=== PATIENT | female | born 1995 ===

== ENCOUNTER 2018-11-23 06:01 | Inpatient (IN) | payer OTHER ==
[~2018-11-23] VITALS: Ht 160 cm; Wt 93.4 kg
[2018-11-23] MEDS ORDERED: PRENATAL 19 TA1 EACH PO (07:03)
== END 2018-11-25 12:26 | disposition home or self-care (01) | DRG 807 ==
LOC: LDR 06:01 → OB/GYN 16:10
PROVIDERS: ADMIT Obstetrics & Gynecology
PROC: 10E0XZZ Delivery of Products of Conception, External Approach (ICD-10-PCS; principal; 2018-11-23)
PROC: 4A1HXCZ Monitoring of Products of Conception, Cardiac Rate, External Approach (ICD-10-PCS; 2018-11-23)
PROC: 4A033R1 Measurement of Arterial Saturation, Peripheral, Percutaneous Approach (ICD-10-PCS; 2018-11-23)
DX: O80 Encounter for full-term uncomplicated delivery (principal); Z37.0 Single live birth; Z3A.39 39 weeks gestation of pregnancy; Z22.330 Carrier of Group B streptococcus

== ENCOUNTER 2021-07-15 08:03 | Outpatient (CLI) | payer OTHER ==
[~2021-07-15 08:03] MED LIST: PRENATAL 19 TA1 EACH PO
[2021-07-18] MEDS ORDERED: HUMULIN N100 UNIT/2 SUBCUTANEO (15:01)
[2021-07-18] MEDS ORDERED: HUMULIN R100 UNIT/1 SUBCUTANEO (15:02)
[2021-07-18] MEDS ORDERED: INSULIN SYRING1 EA29 SUBCUTANEO (15:03)
[2021-07-18] MEDS ORDERED: ALCOHOL PADS1 EACH TOP (15:04)
== END 2021-07-15 10:20 | disposition home or self-care (01) ==
LOC: PRENATAL 08:03
PROVIDERS: ATTEND Obstetrics & Gynecology Maternal & Fetal Medicine
DX: O35.0XX1 Maternal care for (suspected) central nervous system malformation in fetus, fetus 1 (principal); O35.3XX1 Maternal care for (suspected) damage to fetus from viral disease in mother, fetus 1; O98.512 Other viral diseases complicating pregnancy, second trimester; O24.410 Gestational diabetes mellitus in pregnancy, diet controlled; O99.212 Obesity complicating pregnancy, second trimester; Z36.89 Encounter for other specified antenatal screening; Z3A.24 24 weeks gestation of pregnancy

== ENCOUNTER 2021-08-14 15:09 | Outpatient (CLI) | payer OTHER ==
[~2021-08-14 15:09] MED LIST changes: +ALCOHOL PADS1 EACH TOP; +HUMULIN N100 UNIT/2 SUBCUTANEO; +HUMULIN R100 UNIT/1 SUBCUTANEO; +INSULIN SYRING1 EA29 SUBCUTANEO
== END 2021-08-14 15:59 | disposition home or self-care (01) ==
LOC: PRENATAL 15:09
PROVIDERS: ATTEND Obstetrics & Gynecology Maternal & Fetal Medicine
DX: O26.843 Uterine size-date discrepancy, third trimester (principal); O99.213 Obesity complicating pregnancy, third trimester; O24.410 Gestational diabetes mellitus in pregnancy, diet controlled; Z36.89 Encounter for other specified antenatal screening; Z3A.29 29 weeks gestation of pregnancy

== ENCOUNTER 2021-09-18 14:45 | Outpatient (CLI) | payer OTHER | END 2021-09-18 15:45 | disposition home or self-care (01) | LOC: PRENATAL 14:45 | PROVIDERS: ATTEND Obstetrics & Gynecology Maternal & Fetal Medicine | DX: O26.843 Uterine size-date discrepancy, third trimester (principal); O24.410 Gestational diabetes mellitus in pregnancy, diet controlled; O99.213 Obesity complicating pregnancy, third trimester; O35.0XX1 Maternal care for (suspected) central nervous system malformation in fetus, fetus 1; Z36.89 Encounter for other specified antenatal screening; Z3A.34 34 weeks gestation of pregnancy ==

== ENCOUNTER → 2021-10-16 | Outpatient (CLI) | payer OTHER ==
[~2021-10-16] MED LIST changes: +AMPICILLIN TRI500 MG PO
== END | disposition home or self-care (01) ==
LOC: PRENATAL 13:54
PROVIDERS: ATTEND Obstetrics & Gynecology Maternal & Fetal Medicine
DX: O26.843 Uterine size-date discrepancy, third trimester (principal); O24.410 Gestational diabetes mellitus in pregnancy, diet controlled; O99.213 Obesity complicating pregnancy, third trimester; Z36.89 Encounter for other specified antenatal screening; Z3A.37 37 weeks gestation of pregnancy

== ENCOUNTER 2021-10-17 13:06 | Inpatient (IN) | payer OTHER ==
[~2021-10-17] VITALS: Ht 160 cm; Wt 96.2 kg
[~2021-10-17 13:06] MED LIST changes: -AMPICILLIN TRI500 MG PO
[2021-10-17] MEDS ORDERED: AMPICILLIN TRI500 MG PO (13:52)
== END 2021-10-19 17:19 | DRG 805 ==
LOC: LDR 13:06 → OB/GYN 13:06 → LDR 14:47 → OB/GYN 17:15 → LDR 20:06 → OB/GYN 10-18 15:30
PROVIDERS: ADMIT Obstetrics & Gynecology; ATTEND Obstetrics & Gynecology
PROC: 10E0XZZ Delivery of Products of Conception, External Approach (ICD-10-PCS; principal; 2021-10-17)
PROC: 0HQ9XZZ Repair Perineum Skin, External Approach (ICD-10-PCS; 2021-10-17)
PROC: 10907ZC Drainage of Amniotic Fluid, Therapeutic from Products of Conception, Via Natural or Artificial Opening (ICD-10-PCS; 2021-10-17)
PROC: 4A1HXFZ Monitoring of Products of Conception, Cardiac Rhythm, External Approach (ICD-10-PCS; 2021-10-17)
DX: O70.0 First degree perineal laceration during delivery (principal); O98.52 Other viral diseases complicating childbirth; U07.1 COVID-19; O24.424 Gestational diabetes mellitus in childbirth, insulin controlled; Z37.0 Single live birth; Z3A.37 37 weeks gestation of pregnancy